=== PATIENT | female | born 1980 | race Caucasian/White ===

== ENCOUNTER 2017-05-09 20:21 | Emergency (ER) | payer OTHER ==
[~2017-05-09] VITALS: Ht 172.7 cm; Wt 114.4 kg
[2017-05-09 20:34] VITALS: BP 116/71; PULSE 80; RESP 20; TEMP 98; O2SAT 99
--- NOTE | 2017-05-09 20:44 | PD ---
HPI Chief Complaint: Head Injury Time Seen by Provider: 20:43 Travel History International Travel<30 days: No Contact w/Intl Traveler<30days: No Traveled to known affect area: No History of Present Illness HPI 36-year-old female came to the emergency room with history of bumping the side of her head on a metal rack at work. She bumped the left side of her head and for first 20-30 minutes she was okay and then started to get headache and acting loopy. She took ibuprofen but that did not help. She works at [employer] and they recommended that she should come to the emergency room to be checked out. Her is here and says that her behavior is a little bit abnormal currently. No history of vomiting. She is otherwise a healthy person. Vital signs were stable. No loss of consciousness after the event. The headache is mostly on the left temporal aspect with no radiation. No aggravating or relieving factors identified. PFSH Past Medical History Narrative Medical List of her past medical, surgical, social and family history is reviewed from the nursing note. ?: Not Social History Tobacco Use: No Allergies-Medications (Allergen,Severity, Reaction): Coded Allergies: No Known Allergies (Unverified , 05/09/17) Comments No known drug allergies. Reported Meds & Prescriptions Reported Meds & Active Scripts Active No Active Prescriptions or Reported Medications Narrative Medication List of her home medications reviewed from the nursing note. Review of Systems Except as stated in HPI: all other systems reviewed are Neg Neurologic: Positive: Headache Physical Exam Narrative GENERAL: Awake, alert, no obvious distress SKIN: Focused skin assessment warm/dry. HEAD: Atraumatic. Normocephalic. EYES: Pupils equal and round. No scleral icterus. No injection or drainage. ENT: No nasal bleeding or discharge. Mucous membranes pink and moist. NECK: Trachea midline. No JVD. CARDIOVASCULAR: Regular rate and rhythm. No murmur appreciated. RESPIRATORY: No accessory muscle use. Clear to auscultation. Breath sounds equal bilaterally. GASTROINTESTINAL: Abdomen soft, non-tender, nondistended. Hepatic and splenic margins not palpable. MUSCULOSKELETAL: No obvious deformities. No clubbing. No cyanosis. No edema. NEUROLOGICAL: Awake and alert. No obvious cranial nerve deficits. Motor grossly within normal limits. Normal speech. PSYCHIATRIC: Appropriate mood and affect; insight and judgment normal. Data Data Last Documented VS Vital Signs Date Time Temp Pulse Resp B/P (MAP) Pulse Ox O2 Delivery O2 Flow Rate FiO2 05/09/17 22:30 16 05/09/17 22:29 72 118/76 (90) 97 05/09/17 21:08 Room Air 05/09/17 20:[address] Brain W/O Iv Contrast(Rout) (05/09/17 ) Acetaminophen (Tylenol) (05/09/17 21:00) Drug Screen, Random Urine (05/09/17 20:51) Ed Discharge Order (05/09/17 21:37) Labs Laboratory Tests Test 05/09/17 21:08 Urine Opiates Screen NEG Urine Barbiturates Screen NEG Urine Amphetamines Screen NEG Urine Benzodiazepines Screen NEG Urine Cocaine Screen NEG Urine Cannabinoids Screen NEG MDM Medical Decision Making Medical Screen Exam Complete: Yes Emergency Medical Condition: Yes Medical Record Reviewed: Yes Differential Diagnosis Concussion, intracranial bleed Narrative Course 9:35 PM awaiting for the CAT scan of the brain to be resulted. Patient was given Tylenol for the headache. Diagnosis Primary Impression: Concussion Qualified Codes: S06.0X0A - Concussion without loss of consciousness, initial encounter Additional Instructions: Please return to the ER if condition worsens or any other new concerns. Expect to get headache now and then for next week or 2. He could also have episodes of dizziness, blurred vision and difficulty to concentrate which is all part of post concussive syndrome. Limit watching television, computer screen or smart phone to minimize the stimulation of her eyes and brain. Med/Other Pt SpecificInfo: No Change to Meds Scripts No Active Prescriptions or Reported Meds Disposition: 01 DISCHARGE HOME Condition: Stable Tiffany Calhoun MD May 09, 2017 20:44
[2017-05-09] MEDS ORDERED: ACETAMINOPHEN 325 MG TAB PO ONE (21:00)
[2017-05-09 21:06] VITALS: BP 115/76; PULSE 68; RESP 18; O2SAT 100
--- NOTE | 2017-05-09 21:32 | RADRPT ---
EXAM DATE/TIME: 05/09/2017 21:12 [facility] COMPARISON: No previous studies available for comparison. INDICATIONS : Hit left forehead 2 hours ago RADIATION DOSE: 59.16 CTDIvol (mGy) MEDICAL HISTORY : None SURGICAL HISTORY : None. ENCOUNTER: Initial ACUITY: 1 day PAIN SCALE: 4/10 LOCATION: Left cranial TECHNIQUE: Multiple contiguous axial images were obtained of the head. Using automated exposure control and adj ustment of the mA and/or kV according to patient size, radiation dose was kept as low as reasonably a chievable to obtain optimal diagnostic quality images. DICOM format image data is available electro nically for review and comparison. FINDINGS: CEREBRUM: The ventricles are normal for age. No evidence of midline shift, mass lesion, hemorrhage or acute in farction. No extra-axial fluid collections are seen. POSTERIOR FOSSA: The cerebellum and brainstem are intact. The 4th ventricle is midline. The cerebellopontine angle i s unremarkable. EXTRACRANIAL: The visualized portion of the orbits is intact. SKULL: The calvaria is intact. No evidence of skull fracture. CONCLUSION: No acute disease. Mayank Mahmood MD on May 09, 2017 at 21:28 Board Certified Radiologist. This report was verified electronically.
[2017-05-09 22:29] VITALS: BP 118/76
[2017-05-09 22:30] VITALS: RESP 16
== END 2017-05-09 22:30 | disposition home or self-care (01) ==
LOC: PHED 20:21
DX: S06.0X0A Concussion without loss of consciousness, initial encounter (principal); W22.09XA Striking against other stationary object, initial encounter; Y92.512 Supermarket, store or market as the place of occurrence of the external cause; Y99.0 Civilian activity done for income or pay
CPT/HCPCS: 70450; 80307; 99284